=== PATIENT | female | born 1975 | race Caucasian/White ===

== ENCOUNTER → 2017-06-09 | Outpatient (CLI) | payer OTHER ==
[~2017-06-09] MED LIST: ACET-1256 PO; BSP/10 PO; BSP15 PO; CHLO1TAB19 PO; CLON0.5T3 PO; GABA800T PO; IBUP-1050 PO; QUET1TAB30 PO; TOPI50TA16 PO
[2017-06-09 18:46] LABS: URINE APPEARANCE CLEAR (CLEAR); URINE BILIRUBIN NEG (NEG); URINE COLOR YELLOW; URINE NITRITE NEG (NEG); URINE PH 7.5 (4.5-7.5); UROBILINOGEN NEG (NEG)
[2017-06-09 19:12] LABS: MANUAL MICROSCOPIC REQUIRED? YES; REVIEW REQ? NO
[2017-06-09 19:14] LABS: URINE BACTERIA 4+ (NEG); URINE RBC 0-4 /hpf (0-4)
== END | disposition home or self-care (01) ==
LOC: C.LABSPEC 17:19
PROVIDERS: ATTEND Nurse Practitioner Family
DX: R10.9 Unspecified abdominal pain (principal)

== ENCOUNTER 2017-06-24 16:09 | Inpatient (IN) | payer OTHER ==
[~2017-06-24] VITALS: Ht 170.2 cm; Wt 77.0 kg
[~2017-06-24 16:09] MED LIST changes: -BSP15 PO; -CHLO1TAB19 PO
[2017-06-24] MEDS ORDERED: SODIUM CHLORIDE 0.9% 1000ML 1,000 ML IV STA (16:22)
[2017-06-24 16:54] LABS: HEMATOCRIT 41.9 % (37-47); MEAN CELL VOLUME 90.5 fL (80-100); MEAN CORPUSCULAR HGB CONC 33.2 g/dl (32-36); MEAN PLATELET VOLUME 10.6 fL (7.4-10.4); PLATELET COUNT 217 K/uL (130-400); RED BLOOD COUNT 4.63 M/uL (4.2-5.4); WHITE BLOOD COUNT 7.94 K/uL (4.8-10.8)
[2017-06-24] MEDS ORDERED: BSP15 PO (17:06)
[2017-06-24] MEDS ORDERED: CHLO1TAB19 PO (17:06)
--- NOTE | 2017-06-24 17:08 | EMERGENCY ROOM VISIT NOTE ---
History Report prepared by Linda: Lianne Morrissey Under the Supervision of: Dr. Osmany Moss M.D. First contact with patient: 16:20 Chief Complaint: OVERDOSE (INTENTIONAL) Stated Complaint: POSSIBLE OVERDOSE ON MEDICATIONS History of Present Illness The patient is a 41 year old female who presents to the Emergency Room with complaints of an overdose around 1200 today. The patient took 15/0.5 mg Klonopin. She also took Thorazine, BuSpar, and Neurontin. She also took her other medications which she cannot recall. They were her own medications. She states that she was upset because she was going to half-way. She was not trying to harm herself. She was trying to sleep. She arrived at the detention around 1400 and told medical that she had overdosed. She was brought to the ED. She is groggy, sleepy, and nauseous. She denies any vomiting. She denies any prior overdose. She has a history of depression, anxiety, and bipolar disorder. She denies any other medical problems. Source of History: patient Onset: 1200 Position: other (global) Quality: other (overdose) Timing: other (episodic) Associated Symptoms: + nausea, No vomiting Note: Pt is groggy, sleepy. Review of Systems See HPI for pertinent positives & negatives. A total of 10 systems reviewed and were otherwise negative. Past Medical & Surgical Medical Problems: (1) Abdominal pain (2) Bipolar Disorder, Unspecified (3) Calculus Of Kidney (4) Depressive Disorder Nec (5) Pain, dental (6) Psychosis Nos (7) Tubal Ligation Status Family History Cancer Diabetes mellitus Gallbladder disease Heart disease Lung disease Seizures Social History Smoking Status: Current Every Day Smoker Alcohol Use: none Drug Use: heroin Marital Status: Housing Status: other (detention) Occupation Status: other (prisoner) Current/Historical Medications Scheduled Buspirone HCl (Buspirone HCl), 15 MG PO TID Chlorpromazine Hcl (Thorazine), 25 MG PO TID Clonazepam (Klonopin), 0.5 MG PO TID Gabapentin (Neurontin), 800 MG PO TID Quetiapine Fumarate (Seroquel), 300 MG PO HS Topiramate (Topamax), 50 MG PO BID Allergies Coded Allergies: Codeine (Verified Allergy, Unknown, PT IS NOT ALLERGIC TO CODEINE BUT TO COUGH SYRUP FORMULATION, 06/24/17) Physical Exam Vital Signs Date Time Temp Pulse Resp B/P (MAP) Pulse Ox O2 Delivery O2 Flow Rate FiO2 06/24/17 17:09 96 Room Air 06/24/17 16:45 99 06/24/17 16:13 36.5 100 18 105/75 98 Room Air Physical Exam GENERAL: Patient is in no acute distress. HEENT: No acute trauma, normocephalic atraumatic, pupils equal and reactive to light, mucous membranes moist, no nasal congestion, no scleral icterus. NECK: No stridor, no adenopathy, no meningismus, trachea is midline. LUNGS: Clear to auscultation bilaterally, no wheeze, no rhonchi, breath sounds equal. HEART: Without murmurs gallops or rubs, regular rate and rhythm. ABDOMEN: Soft, nontender, bowel sounds positive, no hernias, no peritonitis. EXTREMITIES: No cyanosis or edema, full range of motion of all the joints without pain or difficulty, no signs for acute trauma. NEUROLOGIC: Groggy and sleepy, no focal motor deficit, awake, oriented x3. SKIN: No rash, no jaundice, no diaphoresis. Medical Decision & Procedures Laboratory Results 06/24/17 16:35 06/24/17 16:35 Test 06/24/17 16:35 06/24/17 17:05 Red Blood Count 4.63 M/uL (4.2-5.4) Mean Corpuscular Volume 90.5 fL (80-100) Mean Corpuscular Hemoglobin 30.0 pg (25-34) Mean Corpuscular Hemoglobin Concent 33.2 g/dl (32-36) RDW Standard Deviation 43.8 fL (36.4-46.3) RDW Coefficient of Variation 13.3 % (11.5-14.5) Mean Platelet Volume 10.6 fL (7.4-10.4) Prothrombin Time 9.9 SECONDS (9.0-12.0) Prothromb Time International Ratio 0.9 (0.9-1.1) Activated Partial Thromboplast Time 27.5 SECONDS (21.0-31.0) Partial Thromboplastin Ratio 1.1 Anion Gap 5.0 mmol/L (3-11) Estimated GFR () 81.6 Estimated GFR (Non- 70.4 BUN/Creatinine Ratio 8.5 (10-20) Calcium Level 9.2 mg/dl (8.5-10.1) Magnesium Level 2.2 mg/dl (1.8-2.4) Total Bilirubin 0.3 mg/dl (0.2-1) Aspartate Amino Transf (AST/SGOT) 23 U/L (15-37) Alanine Aminotransferase (ALT/SGPT) 26 U/L (12-78) Alkaline Phosphatase 81 U/L (45-117) Total Protein 7.9 gm/dl (6.4-8.2) Albumin 3.7 gm/dl (3.4-5.0) Globulin 4.1 gm/dl (2.5-4.0) Albumin/Globulin Ratio 0.9 (0.9-2) Thyroid Stimulating Hormone (TSH) 0.893 uIu/ml (0.300-4.500) Human Chorionic Gonadotropin, Qual NEG (NEG) Salicylates Level 4.9 mg/dl (2.8-20) Acetaminophen Level < 2 ug/ml (10-30) Ethyl Alcohol mg/dL < 3.0 mg/dl (0-3) Urine Color YELLOW Urine Appearance CLEAR (CLEAR) Urine pH 6.0 (4.5-7.5) Urine Specific [place] 1.021 (1.000-1.030) Urine Protein NEG (NEG) Urine Glucose (UA) NEG (NEG) Urine Ketones NEG (NEG) Urine Occult Blood 2+ (NEG) Urine Nitrite NEG (NEG) Urine Bilirubin NEG (NEG) Urine Urobilinogen NEG (NEG) Urine Leukocyte Esterase TRACE (NEG) Urine WBC (Auto) 1-5 /hpf (0-5) Urine RBC (Auto) 5-10 /hpf (0-4) Urine Hyaline Casts (Auto) 1-5 /lpf (0-5) Urine Epithelial Cells (Auto) >30 /lpf (0-5) Urine Bacteria (Auto) NEG (NEG) Urine Opiates Screen NEG (NEG) Urine Methadone, Qualitative NEG (NEG) Urine Barbiturates NEG (NEG) Urine Phencyclidine (PCP) Level NEG (NEG) Ur Amphetamine/Methamphetamine NEG (NEG) MDMA (Ecstasy) Screen NEG (NEG) Urine Benzodiazepines Screen POS (NEG) Urine Cocaine Metabolite NEG (NEG) Urine Marijuana (THC) NEG (NEG) Laboratory results reviewed by me. Medications Administered Medications (Trade) Dose Ordered Sig/Rohini Route Start Time Stop Time Status Last Admin Dose Admin Sodium Chloride 1,000 ml @ 999 mls/hr Q1H1M STAT IV 06/24/17 16:22 06/24/17 17:22 DC 06/24/17 16:53 999 MLS/HR ECG Indication: toxicologic Rate (beats per minute): 99 Rhythm: normal sinus Findings: no acute ischemic change, no ectopy ED Course 162: The patient was evaluated in room C8. A complete history and physical exam was performed. 162: NSS 1000 ml @ 999 mls/hr IV. 1739: I reevaluated the patient. She is asking for something to eat. I discussed results and treatment plan with the patient and the guards. They verbalize agreement and understanding. The patient will be evaluated for further management. 1743: I discussed the patient's case with Dr. Oneill, [facility] hospitalist service. The patient will be evaluated for further management. Medical Decision Differential diagnoses considered include suicidal ideation, electrolyte imbalance, alcohol overdose, medication overdose, dehydration, UTI, . There is no leukocytosis or concerning anemia. No significant electrolyte abnormality, kidney failure or hepatitis. The patient appears to be in a euthyroid state. There is no coagulopathy. Urinalysis shows contamination, no evidence for infection. Alcohol, aspirin and Tylenol levels were basically undetectable. Urine tox shows benzos. EKG shows a sinus rhythm, no acute ischemia, no dysrhythmia. testing was negative. The patient received IV saline, she has been resting. She is quite somnolent from what she ingested, she denies that this was a suicide attempt. The patient is not safe to be discharged back to the detention. She will require monitoring. We need to allow the drugs to clear from her system and then she can be taken back to half-way. I spoke to case management, I did talk with the detention guards and the patient. The on-call hospitalist was consulted. Consults Time Called: 1740 Consulting Physician: Dr. Oneill, [facility] hospitalist service Returned Call: 1743 I discussed the patient's case with him. The patient will be evaluated for further management. Impression Primary Impression: Multiple drug overdose Additional Impression: Change in mental status Scribe Attestation The scribe's documentation has been prepared under my direction and personally reviewed by me in its entirety. I confirm that the note above accurately reflects all work, treatment, procedures, and medical decision making performed by me. Departure Information Dispostion Being Evaluated By Hospitalist Referrals [facility] (PCP) Patient Instructions My [facility] Health Problem Qualifiers
[2017-06-24 17:11] LABS: INR 0.9 (0.9-1.1); PARTIAL THROMBOPLASTIN RATIO 1.1; PROTHROMBIN TIME (PATIENT) 9.9 SECONDS (9.0-12.0)
[2017-06-24 17:19] LABS: ALT/SGPT 26 U/L (12-78); BLOOD UREA NITROGEN 9 mg/dl (7-18); BUN/CREATININE RATIO 8.5 (10-20); CALCIUM 9.2 mg/dl (8.5-10.1); CARBON DIOXIDE 26 mmol/L (21-32); CHLORIDE 109 mmol/L (98-107); GLUCOSE 97 mg/dl (70-99); MAGNESIUM 2.2 mg/dl (1.8-2.4); POTASSIUM 3.5 mmol/L (3.5-5.1); SODIUM 140 mmol/L (136-145)
[2017-06-24 17:27] LABS: URINE APPEARANCE CLEAR (CLEAR); URINE BILIRUBIN NEG (NEG); URINE COLOR YELLOW; URINE EPITHELIAL CELL AUTO >30 /lpf (0-5); URINE NITRITE NEG (NEG); URINE SPECIFIC GRAVITY 1.021 (1.000-1.030); UROBILINOGEN NEG (NEG); ZZUR CULT IF INDIC CLEAN CATCH NO
[2017-06-24 17:27] LABS: PREG INTERNAL NEGATIVE QC NEG CLEAR BACKGROUND; PREG INTERNAL POSITIVE QC POS CONTROL LINE
[2017-06-24 17:28] LABS: MANUAL MICROSCOPIC REQUIRED? NO; REVIEW REQ? NO
[2017-06-24 17:30] LABS: ALB/GLOB RATIO 0.9 (0.9-2); ALKALINE PHOSPHATASE 81 U/L (45-117); AST/SGOT 23 U/L (15-37); THYROID STIMULATING HORMONE 0.893 uIu/ml (0.300-4.500)
[2017-06-24 17:52] LABS: BENZODIAZEPINE, URINE POS (NEG); COCAINE,URINE NEG (NEG); PHENCYCLIDINE, URINE NEG (NEG)
[2017-06-24 17:58] LABS: ACETAMINOPHEN < 2 ug/ml (10-30)
--- NOTE | 2017-06-24 19:13 | History and Physical ---
History & Physical Date & Time of Service: Jun 24, 2017 at 18:51 Chief Complaint: Possible Overdose On Medications Primary Care Physician: Yocasta Garvey History of Present Illness Source: patient 41 y/o F Hx Bipolar disease with psychosis. The pt was sentenced to a 3 day stint at local skilled nursing. This caused her due distress and lead her to ingest excess amounts of several of her medications. She can confirm that she consumed 7.5 mg of Klonopin in addition to an undetermined quantity of Thorazine , Evan, Buspar. The pt is somnolent but can answer question appropriately at the time of admission. She insists she did not intend to harm herself and states that she overdosed with the intent of sleeping through her 3 day sentence. She denies any CP, SOB, N/V, DUMONT or fevers. Past Medical/Surgical History Medical Problems: (1) Abdominal pain Status: Resolved (2) Bipolar Disorder, Unspecified Status: Chronic (3) Calculus Of Kidney Status: Resolved (4) Depressive Disorder Nec Status: Chronic (5) Pain, dental Status: Resolved (6) Psychosis Nos Status: Chronic (7) Tubal Ligation Status Status: Resolved Family History Cancer Diabetes mellitus Gallbladder disease Heart disease Lung disease Seizures Father owing to CHF Social History Smokes one pack daily - states she was a heroin user until 2 years ago and not since - currently incarcerated for a short period Smoking Status: Current Every Day Smoker Drug Use: heroin Marital Status: Housing status: lives with significant other Occupational Status: other (prisoner) Immunizations History of Influenza Vaccine: Unknown History of Tetanus Vaccine?: Unknown History of Pneumococcal: No History of Hepatitis B Vaccine: Unknown Multi-Drug Resistant Organisms History of MDRO: No Allergies Coded Allergies: Codeine (Verified Allergy, Unknown, PT IS NOT ALLERGIC TO CODEINE BUT TO COUGH SYRUP FORMULATION, 06/24/17) Home Medications Scheduled Buspirone HCl (Buspirone HCl), 15 MG PO TID Chlorpromazine Hcl (Thorazine), 25 MG PO TID Clonazepam (Klonopin), 0.5 MG PO TID Gabapentin (Neurontin), 800 MG PO TID Quetiapine Fumarate (Seroquel), 300 MG PO HS Topiramate (Topamax), 50 MG PO BID Review of Systems Constitutional: No fever, No chills, No sweats Eyes: No worsening of vision ENT: No hearing loss, No unusual epistaxis, No nasal symptoms Respiratory: No cough, No sputum, No wheezing Cardiovascular: No chest pain, No orthopnea, No PND Abdomen: No pain, No nausea, No vomiting Musculoskeletal: No joint pain Genitourinary - Female: No dysuria Neurologic: + problem reported (Somnolence as above ), No memory loss, No paralysis, No weakness Psychiatric: + depression symptoms Endocrine: No fatigue Hematologic / Lymphatic: No abnormal bleeding/bruising Integumentary: No rash Allergic / Immunologic: No environmental allergies Physical Exam Vital Signs Date Time Temp Pulse Resp B/P (MAP) Pulse Ox O2 Delivery O2 Flow Rate FiO2 06/24/17 18:23 90 16 109/86 97 Room Air 06/24/17 17:09 96 Room Air 06/24/17 16:45 99 06/24/17 16:13 36.5 100 18 105/75 98 Room Air General Appearance: WD/WN, no apparent distress Head: normocephalic Eyes: normal inspection, PERRL, EOMI ENT: normal ENT inspection, pharynx normal Neck: supple, no JVD Respiratory/Chest: chest non-tender, lungs clear, normal breath sounds Cardiovascular: regular rate, rhythm, no edema, no gallop, no JVD, no murmur, normal peripheral pulses Abdomen/GI: normal bowel sounds, non tender, soft Back: normal inspection, no CVA tenderness Extremities/Musculoskelatal: normal inspection, no calf tenderness Neurologic/Psych: + pertinent finding (The pt is somnolent so that her exam is limited - she does not display any clear deficits and is oriented x 3 ) Skin: normal color, warm/dry, no rash Diagnostics Laboratory Results Results Past 24 Hours Test 06/24/17 16:35 06/24/17 17:05 Range/Units White Blood Count 7.94 4.8-10.8 K/uL Red Blood Count 4.63 4.2-5.4 M/uL Hemoglobin 13.9 12.0-16.0 g/dL Hematocrit 41.9 37-47 % Mean Corpuscular Volume 90.5 80-100 fL Mean Corpuscular Hemoglobin 30.0 25-34 pg Mean Corpuscular Hemoglobin Concent 33.2 32-36 g/dl RDW Standard Deviation 43.8 36.4-46.3 fL RDW Coefficient of Variation 13.3 11.5-14.5 % Platelet Count 217 130-400 K/uL Mean Platelet Volume 10.6 7.4-10.4 fL Prothrombin Time 9.9 9.0-12.0 SECONDS Prothromb Time International Ratio 0.9 0.9-1.1 Activated Partial Thromboplast Time 27.5 21.0-31.0 SECONDS Partial Thromboplastin Ratio 1.1 Sodium Level 140 136-145 mmol/L Potassium Level 3.5 3.5-5.1 mmol/L Chloride Level 109 98-107 mmol/L Carbon Dioxide Level 26 21-32 mmol/L Anion Gap 5.0 3-11 mmol/L Blood Urea Nitrogen 9 7-18 mg/dl Creatinine 1.00 0.60-1.20 mg/dl Estimated GFR () 81.6 Estimated GFR (Non- 70.4 BUN/Creatinine Ratio 8.5 10-20 Random Glucose 97 70-99 mg/dl Calcium Level 9.2 8.5-10.1 mg/dl Magnesium Level 2.2 1.8-2.4 mg/dl Total Bilirubin 0.3 0.2-1 mg/dl Aspartate Amino Transf (AST/SGOT) 23 15-37 U/L Alanine Aminotransferase (ALT/SGPT) 26 12-78 U/L Alkaline Phosphatase 81 45-117 U/L Total Protein 7.9 6.4-8.2 gm/dl Albumin 3.7 3.4-5.0 gm/dl Globulin 4.1 2.5-4.0 gm/dl Albumin/Globulin Ratio 0.9 0.9-2 Thyroid Stimulating Hormone (TSH) 0.893 0.300-4.500 uIu/ml Human Chorionic Gonadotropin, Qual NEG NEG Salicylates Level 4.9 2.8-20 mg/dl Acetaminophen Level < 2 10-30 ug/ml Ethyl Alcohol mg/dL < 3.0 0-3 mg/dl Urine Color YELLOW Urine Appearance CLEAR CLEAR Urine pH 6.0 4.5-7.5 Urine Specific [place] 1.021 1.000-1.030 Urine Protein NEG NEG Urine Glucose (UA) NEG NEG Urine Ketones NEG NEG Urine Occult Blood 2+ NEG Urine Nitrite NEG NEG Urine Bilirubin NEG NEG Urine Urobilinogen NEG NEG Urine Leukocyte Esterase TRACE NEG Urine WBC (Auto) 1-5 0-5 /hpf Urine RBC (Auto) 5-10 0-4 /hpf Urine Hyaline Casts (Auto) 1-5 0-5 /lpf Urine Epithelial Cells (Auto) >30 0-5 /lpf Urine Bacteria (Auto) NEG NEG Urine Opiates Screen NEG NEG Urine Methadone, Qualitative NEG NEG Urine Barbiturates NEG NEG Urine Phencyclidine (PCP) Level NEG NEG Ur Amphetamine/Methamphetamine NEG NEG MDMA (Ecstasy) Screen NEG NEG Urine Benzodiazepines Screen POS NEG Urine Cocaine Metabolite NEG NEG Urine Marijuana (THC) NEG NEG EKG Sinus tach - 100 BPM normal QT Impression Assessment and Plan 41 y/o F Hx Bipolar disease with psychosis. The pt was sentenced to a 3 day stint at te local skilled nursing. This caused her due distress and lead her to ingest excess amounts of several of her medications. She can confirm that she consumed 7.5 mg of Klonopin in addition to an undetermined quantity of Thorazine , Evan, Buspar. The pt is somnolent but can answer question appropriately at the time of admission. She insists she did not intend to harm herself and states that she overdosed with the intent of sleeping through her 3 day sentence. She denies any CP, SOB, N/V, DUMONT or fevers. 1) Overdose - monitor on telemetry, IVF - check EKG q4h for QT prolongation - mental helath consult requested to evaluate for ideation - at very least her poor judgement places her at risk for self harm. 2) Smoker - pt has more pressing issues at present than cessation. Full code - Heparin prophylaxis Total time for this admit including review of labs, meds, EKG, recors - discussion with pt and ER attending - 35 min Level of Care Telemetry Resuscitation Status FULL RESUSCITATION VTE Prophylaxis Given or contraindicated: Unfractionated heparin SQ
[2017-06-24] MEDS ORDERED: MAGNESIUM HYDROXIDE SUSP 30 ML UDC PO PRN (19:15)
[2017-06-24] MEDS ORDERED: POLYETHYLENE (MIRALAX) 17 GM PACK PO PRN (19:15)
[2017-06-24] MEDS ORDERED: ALUMINUM/MAGNESIUM/SIMETH (MAALOX MAX) 30 ML UDC PO PRN (19:15)
[2017-06-24] MEDS ORDERED: ONDANSETRON INJ 2 MG/ML 2 ML VIAL IV PRN (19:15)
[2017-06-24] MEDS ORDERED: ACETAMINOPHEN 325 MG TAB PO PRN (19:15)
[2017-06-24 21:10] VITALS: BP 124/88; PULSE 110; TEMP 36.4; O2SAT 98
[2017-06-24 21:14] VITALS: O2SAT 97; Ht 170.2 cm; Wt 77.0 kg
[2017-06-24] MEDS: D5NSS + 20MEQ KCL 1,000 ML IV SCH (21:49)
[2017-06-24] MEDS: HEPARIN SOD 5000 UNIT/0.5 ML CARP SQ SCH (21:50)
[2017-06-24 23:07] VITALS: BP 106/73; PULSE 95; TEMP 36.5; O2SAT 98
[2017-06-25 02:55] VITALS: BP 102/70; PULSE 86; TEMP 36.6; O2SAT 98
[2017-06-25] MEDS: D5NSS + 20MEQ KCL 1,000 ML IV SCH (04:10)
[2017-06-25 05:35] LABS: MEAN CELL VOLUME 90.5 fL (80-100); MEAN CORPUSCULAR HEMOGLOBIN 30.4 pg (25-34); MEAN CORPUSCULAR HGB CONC 33.6 g/dl (32-36); MEAN PLATELET VOLUME 10.7 fL (7.4-10.4); PLATELET COUNT 186 K/uL (130-400); RED BLOOD COUNT 3.98 M/uL (4.2-5.4); WHITE BLOOD COUNT 9.02 K/uL (4.8-10.8)
[2017-06-25] MEDS: HEPARIN SOD 5000 UNIT/0.5 ML CARP SQ SCH (05:37)
[2017-06-25 06:06] LABS: BUN/CREATININE RATIO 8.6 (10-20); CALCIUM 7.7 mg/dl (8.5-10.1); CREATININE 0.87 mg/dl (0.60-1.20); MAGNESIUM 1.9 mg/dl (1.8-2.4); POTASSIUM 3.5 mmol/L (3.5-5.1)
[2017-06-25 06:59] VITALS: BP 118/79; PULSE 95; TEMP 36.7; O2SAT 95
[2017-06-25] MEDS ORDERED: IBUPROFEN 600 MG TAB PO STA (10:07)
--- NOTE | 2017-06-25 10:17 | Discharge Instructions ---
Discharge Instructions Date of Service Jun 25, 2017. Admission Reason for Admission: Multiple Drug Overdose Discharge Discharge Diagnosis / Problem: Multiple Drug Overdose Discharge Goals Goal(s): Decrease discomfort, Improve function, Increase independence Activity Recommendations Activity Level: Up Ad Sue . Additional Information Patient informed of condition: Yes Advance Directives: No DNR: No Level of Care: Other ([facility]) Communicable Disease: No Prognosis: Stable Instructions / Follow-Up Instructions / Follow-Up Bipolar Disorder with Psychosis with Intentional Multiple Drug Overdose without Suicidal Intention: - It is important to take medications as prescribed as these medications can effect the electrical activity of your heart which allows your heart to beat the right way. -- We have monitored your heart rhythm and everything looks good - Would recommend that you follow-up with your primary psychiatrist when possible to discuss your medications and continued evaluation for the most appropriate medications to help your Bipolar Disorder - May benefit from limited amounts of prescriptions with more frequent checks to prevent overuse. Again it is important to know that taking medications other than prescribed can ultimately lead to . - Recommendations for weaning of the Clonazepam slowly but would defer this to your psychiatrist IF YOU DO DEVELOP SUICIDAL THOUGHTS OR FEELINGS OF HARMING YOURSELF, PLEASE CALL CRISIS OR 911. Current Hospital Diet Patient's current hospital diet: Regular Diet Discharge Diet Recommended Diet: Regular Diet Pending Studies Studies pending at discharge: no Medical Emergencies . Who to Call and When: Medical Emergencies: If at any time you feel your situation is an emergency, please call 911 immediately. . Non-Emergent Contact Non-Emergency issues call your: Primary Care Provider Call Non-Emergent contact if: you have a fever, your pain is concerning you, you have any medication questions . . "Provider Documentation" section prepared by Janeth Foss. . Core Measure Problem Core Measures: None [place] Drug Monitoring Program Search Results: patient reviewed within database, no issues identified
[2017-06-25 11:33] VITALS: BP 115/83; PULSE 102; TEMP 37.1; O2SAT 97
[2017-06-25 12:00] VITALS: BP 115/83; PULSE 102; TEMP 37.1; O2SAT 97
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
--- NOTE | 2017-06-25 12:12 | Discharge Summary ---
Discharge Summary Date of Service Jun 25, 2017. Discharge Summary Admission Date: Jun 24, 2017 at 19:23 Discharge Date: Jun 25, 2017 Discharge Disposition: Home ([facility]) Principal Diagnosis: Intentional Multi-Drug Overdose without Suicidal Ideation Problems/Secondary Diagnoses: 1. Bipolar Disorder with Psychosis Immunizations: Have You Had Influenza Vaccine: Unknown History of Tetanus Vaccine?: Unknown History of Pneumococcal: No History of Hepatitis B Vaccine: Unknown Consultations: 1. Psychiatry Medication Reconciliation Continued Medications: Buspirone HCl (Buspirone HCl) 15 Mg Tab 15 MG PO TID, #90 Chlorpromazine Hcl (Thorazine) 25 Mg Tab 25 MG PO TID, #90 Clonazepam (Klonopin) 0.5 Mg Tab 0.5 MG PO TID, TAB Gabapentin (Neurontin) 800 Mg Tab 800 MG PO TID, TAB Quetiapine Fumarate (Seroquel) 25 Mg Tab 300 MG PO HS, TAB Topiramate (Topamax) 50 Mg Tab 50 MG PO BID, TAB Discharge Exam Review of Systems: Constitutional: + problem reported (headache), No fever, No chills Eyes: No worsening of vision, No eye pain, No diplopia ENT: No nasal symptoms, No sore throat, No trouble swallowing Respiratory: No shortness of breath Cardiovascular: No chest pain, No palpitations Abdomen: No pain, No nausea, No vomiting, No diarrhea, No constipation Musculoskeletal: No swelling, No calf pain Genitourinary - Female: No dysuria Psychiatric: + depression symptoms, + anxiety Hematologic / Lymphatic: No abnormal bleeding/bruising Physical Exam: General Appearance: WD/WN, no apparent distress, + pertinent finding (flat affect; intermittent eye contact; mildly agitated) Eyes: sclerae normal ENT: hearing grossly normal Neck: supple, no JVD, trachea midline Respiratory/Chest: lungs clear, normal breath sounds, no respiratory distress, no accessory muscle use Cardiovascular: regular rate, rhythm, no gallop, no murmur Abdomen / GI: normal bowel sounds, non tender, soft Extremities: no pedal edema Neurologic/Psychiatric: alert, oriented x 3 Skin: normal color, warm/dry Hospital Course ADMISSION: 41 y/o F Hx Bipolar disease with psychosis. The pt was sentenced to a 3 day stint at the local [facility]. This caused her due distress and lead her to ingest excess amounts of several of her medications. She can confirm that she consumed 7.5 mg of Klonopin in addition to an undetermined quantity of Thorazine, Evan, Buspar. The pt is somnolent but can answer question appropriately at the time of admission. She insists she did not intend to harm herself and states that she overdosed with the intent of sleeping through her 3 day sentence. She denies any CP, SOB, N/V, DUMONT or fevers. HOSPITAL COURSE: Ms. Glover was admitted for an intentional multi-drug overdose prior to arriving to [facility]. She has expressed multiple times that this was not in attempts of suicide. She does admit to impulsive behavior but does not feel manic. She follows with Dr. Rodriguez for her psychiatric care. She was monitoring overnight with heart rhythms in sinus and minimal sinus tach. Routine EKGs performed without abnormalities or QT prolongation. Tox screen was only positive for benzodiazepines. She reported H/O heroin use but reports abstinence from this. Psychiatry evaluated her while in-hospital with no medications adjustments at this time. Patient denies suicidal thoughts or plans of self-harm. She is optimal for D/C to [facility]. Total Time Spent: Greater than 30 minutes This includes examination of the patient, discharge planning, medication reconciliation, and communication with other providers. Discharge Instructions Please refer to the electronic Patient Visit Report (Discharge Instructions) for additional information. Additional Copies To [facility]
[2017-06-27 00:05] LABS: HYDROXYETHYLFLURAZEPAM CONF NEGATIVE NG/ML (CUTOFF=50); HYDROXYMIDAZOLAM NEGATIVE NG/ML (CUTOFF=50); HYDROXYTRIAZOLAM CONF NEGATIVE NG/ML (CUTOFF=50); TEMAZEPAM CONF NEGATIVE NG/ML (CUTOFF=50)
== END 2017-06-25 12:39 | DRG 918 ==
LOC: C.EDB 16:12 → C.2T 19:23 → CANRESERV 19:48 → ENRESERV 19:48
PROVIDERS: ADMIT Internal Medicine; ATTEND Internal Medicine
DX: T42.4X2A Poisoning by benzodiazepines, intentional self-harm, initial encounter (principal); F31.89 Other bipolar disorder; T43.3X2A Poisoning by phenothiazine antipsychotics and neuroleptics, intentional self-harm, initial encounter; T43.592A Poisoning by other antipsychotics and neuroleptics, intentional self-harm, initial encounter; F41.9 Anxiety disorder, unspecified; F17.200 Nicotine dependence, unspecified, uncomplicated; Z51.81 Encounter for therapeutic drug level monitoring; Z79.899 Other long term (current) drug therapy; Z62.810 Personal history of physical and sexual abuse in childhood; Z83.3 Family history of diabetes mellitus; Z82.49 Family history of ischemic heart disease and other diseases of the circulatory system

== ENCOUNTER → 2017-11-18 | Outpatient (CLI) | payer OTHER ==
[~2017-11-18] MED LIST changes: -ACET-1256 PO; -BSP/10 PO; +BSP15 PO; +CHLO1TAB19 PO; -IBUP-1050 PO
--- NOTE | 2017-11-18 15:22 | MAMMOGRAPHY REPORT ---
BILATERAL DIGITAL SCREENING MAMMOGRAM TOMOSYNTHESIS WITH CAD: 11/18/2017 CLINICAL HISTORY: Routine screening. Patient has no complaints. TECHNIQUE: Breast tomosynthesis in addition to standard 2D mammography was performed. Current study was also evaluated with a Computer Aided Detection (CAD) system. COMPARISON: Comparison is made to exams dated: 01/03/2016 ultrasound and 01/03/2016 mammogram - [facility]. BREAST COMPOSITION: The tissue of both breasts is heterogeneously dense, which may obscure small mas ses. FINDINGS: No suspicious masses, calcifications, or areas of architectural distortion are noted in ei ther breast. There has been no significant interval change compared to prior exams. IMPRESSION: ACR BI-RADS CATEGORY 1: NEGATIVE There is no mammographic evidence of malignancy. A 1 year screening mammogram is recommended. The pa tient will receive written notification of the results. Approximately 10% of breast cancers are not detected with mammography. A negative mammographic report should not delay biopsy if a clinically suggestive mass is present. Chiqui Hernandez M.D. ah/:11/18/2017 10:37:50 Potato Loader: Araceli BLANKENSHIP(R)(Therese), [facility] letter sent: Normal 1/2 BI-RADS Code: ACR BI-RADS Category 1: Negative
== END | disposition home or self-care (01) ==
LOC: C.MAMM 09:58 → EDSTATUS 10:15
PROVIDERS: ATTEND Obstetrics & Gynecology Gynecology
DX: Z12.31 Encounter for screening mammogram for malignant neoplasm of breast (principal)

== ENCOUNTER → 2017-12-25 | Outpatient (CLI) | payer OTHER ==
[2017-12-25 15:43] LABS: BASO % 0.4 %; BASO ABS # 0.04 K/uL (0-0.2); EOS % 2.3 %; EOS ABS # 0.25 K/uL (0-0.5); HEMOGLOBIN 14.7 g/dL (12.0-16.0); IG# 0.02 K/uL (0.00-0.02); LYMPH % 31.5 %; LYMPH ABS # 3.37 K/uL (1.2-3.4); MEAN CELL VOLUME 90.9 fL (80-100); MEAN CORPUSCULAR HEMOGLOBIN 31.8 pg (25-34); MEAN PLATELET VOLUME 11.9 fL (7.4-10.4); MONO % 9.4 %; NEUT % 56.2 %; NEUT ABS # 6.01 K/uL (1.4-6.5); PLATELET COUNT 182 K/uL (130-400); RED CELL DISTRIBUTION WIDTH CV 13.6 % (11.5-14.5); RED CELL DISTRIBUTION WIDTH SD 44.5 fL (36.4-46.3); WHITE BLOOD COUNT 10.69 K/uL (4.8-10.8)
[2017-12-25 16:05] LABS: ALBUMIN 3.7 gm/dl (3.4-5.0); ALT/SGPT 88 U/L (12-78); BLOOD UREA NITROGEN 11 mg/dl (7-18); CALCIUM 9.4 mg/dl (8.5-10.1); CARBON DIOXIDE 27 mmol/L (21-32); CREATININE 0.94 mg/dl (0.60-1.20); GLUCOSE 80 mg/dl (70-99); POTASSIUM 3.9 mmol/L (3.5-5.1); SODIUM 140 mmol/L (136-145)
[2017-12-25 16:15] LABS: ALKALINE PHOSPHATASE 92 U/L (45-117); AST/SGOT 57 U/L (15-37); TOTAL PROTEIN 7.9 gm/dl (6.4-8.2)
[2017-12-25 16:57] LABS: T3 FREE 2.7 pg/ml (2.30-4.20)
== END | disposition home or self-care (01) ==
LOC: C.LAB1850 14:06
PROVIDERS: ATTEND Nurse Practitioner Family
DX: R53.83 Other fatigue (principal); E07.9 Disorder of thyroid, unspecified

== ENCOUNTER → 2018-01-01 | Outpatient (CLI) | payer OTHER ==
[~2018-01-01] MED LIST changes: +BUSP5TAB59 PO; +GABA-1218 PO; +HYDR1CAP85 PO; +MIRT45TA PO; +PANT40TA PO; +QUET1TAB13 PO; +SUMA100T16 PO
--- NOTE | 2018-01-01 08:48 | DIAGNOSTIC IMAGING REPORT ---
ULTRASOUND RIGHT UPPER QUADRANT ABDOMEN CLINICAL HISTORY: Elevated hepatic transaminases. COMPARISON STUDY: Abdominal CT dated 01/28/2014. TECHNIQUE: Real-time, grayscale, and color flow sonography of the right upper quadrant of the abdomen was performed. Images are reviewed in the transverse and longitudinal planes. FINDINGS: Liver: The liver is normal in size and demonstrates heterogeneously increased echotexture suggesting steatosis. There is no intrahepatic biliary ductal dilatation. The main portal vein is patent. Gallbladder: The gallbladder is surgically absent. The common bile duct measures up to 0.5 cm in diameter. Pancreas: Visualized portions of the pancreatic head and body are normal in appearance. The splenic vein is patent. Right kidney: Survey images of the right kidney demonstrate normal size and echotexture. There is no hydronephrosis. Ascites: None. IMPRESSION: 1. Findings suggest mild hepatic steatosis. 2. Status post cholecystectomy. Electronically signed by: Osmany Bellamy M.D. 01/01/2018 8:46 AM Dictated Date/Time: 01/01/2018 8:39 AM
[2018-01-01 10:49] LABS: HEP C IGG 13 YRS+OLDER_RFLX PRELIM POS (NEG)
[2018-01-02 06:10] LABS: HEPATITIS A IGM TC 51813E NON-REACTIVE (NON-REACTIVE); HEPATITIS B CORE IGM TC51854R NON-REACTIVE (NON-REACTIVE)
[2018-01-06 08:38] LABS: HEPATITIS C RNA TMA QUAL Detected
== END | disposition home or self-care (01) ==
LOC: C.ULTR 08:03
PROVIDERS: ATTEND Nurse Practitioner Family
DX: R74.8 Abnormal levels of other serum enzymes (principal)

== ENCOUNTER 2018-01-12 21:13 | Emergency (ER) | payer OTHER ==
[~2018-01-12] VITALS: Ht 170.2 cm; Wt 85.6 kg
[~2018-01-12 21:13] MED LIST changes: -BUSP5TAB59 PO; -GABA-1218 PO; -HYDR1CAP85 PO; -MIRT45TA PO; -PANT40TA PO; -QUET1TAB13 PO; -SUMA100T16 PO
[2018-01-12 21:15] VITALS: TEMP 36.7; Ht 170.2 cm; Wt 85.6 kg
[2018-01-12] MEDS ORDERED: ALUMINUM/MAGNESIUM SUSP 30 ML UDC PO STA (21:30)
[2018-01-12] MEDS ORDERED: METOCLOPRAMIDE HCL INJ 5 MG/ML 2 ML VIAL IV STA (21:30)
[2018-01-12] MEDS ORDERED: SODIUM CHLORIDE 0.9% 1000ML 1,000 ML IV STA (21:30)
[2018-01-12] MEDS ORDERED: LIDOCAINE HCL 2% VISC SOLN 20 ML UDC PO STA (21:30)
[2018-01-12 21:51] LABS: BASO % 0.5 %; BASO ABS # 0.04 K/uL (0-0.2); EOS % 4.3 %; EOS ABS # 0.32 K/uL (0-0.5); HEMATOCRIT 44.1 % (37-47); HEMOGLOBIN 15.3 g/dL (12.0-16.0); IG# 0.01 K/uL (0.00-0.02); LYMPH % 32.2 %; LYMPH ABS # 2.39 K/uL (1.2-3.4); MEAN CELL VOLUME 92.1 fL (80-100); MEAN CORPUSCULAR HEMOGLOBIN 31.9 pg (25-34); MEAN CORPUSCULAR HGB CONC 34.7 g/dl (32-36); MEAN PLATELET VOLUME 11.1 fL (7.4-10.4); MONO % 9.4 %; NEUT % 53.5 %; NEUT ABS # 3.97 K/uL (1.4-6.5); PLATELET COUNT 205 K/uL (130-400); RED CELL DISTRIBUTION WIDTH CV 13.4 % (11.5-14.5); RED CELL DISTRIBUTION WIDTH SD 45.2 fL (36.4-46.3); WHITE BLOOD COUNT 7.43 K/uL (4.8-10.8)
--- NOTE | 2018-01-12 21:53 | DIAGNOSTIC IMAGING REPORT ---
CHEST ONE VIEW PORTABLE CLINICAL HISTORY: CHEST PAIN COMPARISON STUDY: 03/05/2015 FINDINGS: The bones soft tissues and hemidiaphragms are normal. The cardiomediastinal silhouette is normal. The lungs are clear. The pulmonary vasculature is normal. IMPRESSION: Negative chest. The above report was generated using voice recognition software. It may contain grammatical, syntax or spelling errors. Electronically signed by: Torrey Cedillo M.D. 01/12/2018 9:51 PM Dictated Date/Time: 01/12/2018 9:51 PM
[2018-01-12 22:03] VITALS: O2SAT 97
[2018-01-12 22:08] LABS: ALBUMIN 3.8 gm/dl (3.4-5.0); ALT/SGPT 104 U/L (12-78); BLOOD UREA NITROGEN 8 mg/dl (7-18); CALCIUM 9.2 mg/dl (8.5-10.1); CARBON DIOXIDE 28 mmol/L (21-32); CREATININE 0.94 mg/dl (0.60-1.20); GLUCOSE 93 mg/dl (70-99); LIPASE 121 U/L (73-393); POTASSIUM 3.7 mmol/L (3.5-5.1); SODIUM 139 mmol/L (136-145)
[2018-01-12 22:13] LABS: ALKALINE PHOSPHATASE 85 U/L (45-117); AST/SGOT 83 U/L (15-37)
[2018-01-12] MEDS ORDERED: HYDR1CAP85 PO (22:31)
[2018-01-12] MEDS ORDERED: BUSP5TAB59 PO (22:31)
[2018-01-12] MEDS ORDERED: MIRT45TA PO (22:31)
[2018-01-12] MEDS ORDERED: GABA-1218 PO (22:36)
[2018-01-12] MEDS ORDERED: QUET1TAB13 PO (22:36)
[2018-01-12] MEDS ORDERED: SUMA100T16 PO (22:37)
[2018-01-12] MEDS ORDERED: SUCRALFATE 1 GM/10 ML UDC PO STA (22:58)
[2018-01-12] MEDS ORDERED: PANTOprazole SOD 40 MG TAB PO STA (23:56)
[2018-01-12] MEDS ORDERED: PANT40TA PO (23:57)
[2018-01-13 00:06] VITALS: BP 115/88; PULSE 98; O2SAT 97
--- NOTE | 2018-01-13 04:43 | EMERGENCY ROOM VISIT NOTE ---
History First contact with patient: 21:23 Chief Complaint: ABDOMINAL PAIN Stated Complaint: PAIN UPPER ABDOMEN Nursing Triage Summary: Pt states, "I had an sonogram done 2 weeks ago and they said I have a fatty liver." Upper abd pain started tonight at 2014. Took Zofran tonight with relief. History of Present Illness The patient is a 42 year old female who presents to the Emergency Room with complaints of epigastric pain for the past several hours described as discomfort , ranging in severity 6 out of 10. Nothing makes it better or worse. Patient complains of nausea. She has had a cholecystectomy in the past. 2 weeks ago she had an ultrasound but no acute findings per patient and per chart review. Patient denies chest pain, dyspnea, fever, chills, cough, congestion, vomiting, diarrhea, back pain, urinary symptoms. Review of Systems An 10 system review of systems was completed with positives and pertinent negatives listed in the HPI. Past Medical/Surgical History Medical Problems: (1) Abdominal pain (2) Bipolar Disorder, Unspecified (3) Calculus Of Kidney (4) Depressive Disorder Nec (5) History of bipolar disorder (6) Pain, dental (7) Psychosis Nos (8) Tubal Ligation Status Family History Cancer Diabetes mellitus Gallbladder disease Heart disease Lung disease Seizures Social History Smoking Status: Current Every Day Smoker Alcohol Use: none Drug Use: heroin Marital Status: Housing Status: other Occupation Status: other Current/Historical Medications Scheduled Buspirone Hcl (Buspirone Hcl), 5 MG PO TID Gabapentin (Neurontin), 300 MG PO BID Mirtazapine (Remeron), 45 MG PO HS Pantoprazole (Protonix), 40 MG PO DAILY Quetiapine Fumarate (Seroquel), 400 MG PO HS Scheduled PRN Hydroxyzine Pamoate (Vistaril), 25 MG PO DAILY PRN for Anxiety Sumatriptan Succinate (Imitrex), 100 MG PO UD PRN for Migraine Physical Exam Vital Signs Date Time Temp Pulse Resp B/P (MAP) Pulse Ox O2 Delivery O2 Flow Rate FiO2 01/13/18 00:06 98 21 115/88 97 01/12/18 23:02 127/94 01/12/18 22:18 92 13 96 01/12/18 22:13 94 13 97 01/12/18 22:03 99 01/12/18 22:03 97 Room Air 01/12/18 22:01 120/85 01/12/18 21:15 36.7 106 18 118/79 97 Room Air Physical Exam VITALS: Vitals are noted on the nurse's note and reviewed by myself. Vital signs stable. GENERAL: Pleasant female, in no acute distress, nondiaphoretic, well-developed well-nourished. SKIN: The skin was without rashes, erythema, edema, or bruising. There is no tenting of the skin. Capillary reflex less than 2 seconds. HEAD: Normocephalic atraumatic. EARS: External auditory canals clear, tympanic membranes pearly garrett without erythema or effusion bilaterally. EYES: Pupils equal round and reactive to light and accommodation. Conjunctivae without injection, sclerae without icterus. Extraocular movements intact. NOSE: Patent, turbinates without inflammation or discharge. MOUTH: Mucous membranes moist. Pharynx without erythema or exudate. Uvula midline. Airway patent. Tongue does not deviate. NECK: Supple without nuchal rigidity. No lymphadenopathy. No thyromegaly. Cervical spine is nontender. No JVD. HEART: Regular rate and rhythm without murmurs gallops or rubs. LUNGS: Clear to auscultation bilaterally without wheezes, rales or rhonchi. No retractions or accessory muscle use. ABDOMEN: Positive bowel sounds x 4. Normal tympanic percussion. Soft, nontender, without masses or organomegaly. Cobb sign negative. No guarding or rebound tenderness. No CVA tenderness MUSCULOSKELETAL: No muscle atrophy, erythema, or edema noted. NEURO: Patient was alert and oriented to person place and time. Normal sensation to light and sharp touch. No focal neurological deficits. Medical Decision & Procedures Laboratory Results 01/12/18 21:35 Red Blood Count 4.79, Mean Corpuscular Volume 92.1, Mean Corpuscular Hemoglobin 31.9, Mean Corpuscular Hemoglobin Concent 34.7, Mean Platelet Volume 11.1, Neutrophils (%) (Auto) 53.5, Lymphocytes (%) (Auto) 32.2, Monocytes (%) (Auto) 9.4, Eosinophils (%) (Auto) 4.3, Basophils (%) (Auto) 0.5, Neutrophils # (Auto) 3.97, Lymphocytes # (Auto) 2.39, Monocytes # (Auto) 0.70, Eosinophils # (Auto) 0.32, Basophils # (Auto) 0.04 01/12/18 21:35 Test 01/12/18 21:35 01/12/18 23:40 White Blood Count 7.43 K/uL (4.8-10.8) Red Blood Count 4.79 M/uL (4.2-5.4) Hemoglobin 15.3 g/dL (12.0-16.0) Hematocrit 44.1 % (37-47) Mean Corpuscular Volume 92.1 fL (80-100) Mean Corpuscular Hemoglobin 31.9 pg (25-34) Mean Corpuscular Hemoglobin Concent 34.7 g/dl (32-36) Platelet Count 205 K/uL (130-400) Mean Platelet Volume 11.1 fL (7.4-10.4) Neutrophils (%) (Auto) 53.5 % Lymphocytes (%) (Auto) 32.2 % Monocytes (%) (Auto) 9.4 % Eosinophils (%) (Auto) 4.3 % Basophils (%) (Auto) 0.5 % Neutrophils # (Auto) 3.97 K/uL (1.4-6.5) Lymphocytes # (Auto) 2.39 K/uL (1.2-3.4) Monocytes # (Auto) 0.70 K/uL (0.11-0.59) Eosinophils # (Auto) 0.32 K/uL (0-0.5) Basophils # (Auto) 0.04 K/uL (0-0.2) RDW Standard Deviation 45.2 fL (36.4-46.3) RDW Coefficient of Variation 13.4 % (11.5-14.5) Immature Granulocyte % (Auto) 0.1 % Immature Granulocyte # (Auto) 0.01 K/uL (0.00-0.02) Anion Gap 5.0 mmol/L (3-11) Est Creatinine Clear Calc Drug Dose 88.5 ml/min Estimated GFR () 87.3 Estimated GFR (Non- 75.4 BUN/Creatinine Ratio 8.8 (10-20) Calcium Level 9.2 mg/dl (8.5-10.1) Total Bilirubin 0.5 mg/dl (0.2-1) Direct Bilirubin 0.1 mg/dl (0-0.2) Aspartate Amino Transf (AST/SGOT) 83 U/L (15-37) Alanine Aminotransferase (ALT/SGPT) 104 U/L (12-78) Alkaline Phosphatase 85 U/L (45-117) Troponin I < 0.015 ng/ml (0-0.045) Total Protein 8.0 gm/dl (6.4-8.2) Albumin 3.8 gm/dl (3.4-5.0) Lipase 121 U/L (73-393) Human Chorionic Gonadotropin, Qual NEG (NEG) Bedside Troponin I < 0.030 ng/ml (0-0.045) Medications Administered Medications (Trade) Dose Ordered Sig/Rohini Route Start Time Stop Time Status Last Admin Dose Admin Lidocaine HCl (Viscous Lidocaine 2% Soln) 10 ml NOW STAT PO 01/12/18 21:30 01/12/18 21:33 DC 01/12/18 21:42 10 ML Al Hydroxide/Mg Hydroxide (Maalox Susp) 30 ml NOW STAT PO 01/12/18 21:30 01/12/18 21:33 DC 01/12/18 21:42 30 ML Sodium Chloride 1,000 ml @ 999 mls/hr Q1H1M STAT IV 01/12/18 21:30 01/12/18 22:30 DC 01/12/18 21:42 999 MLS/HR Metoclopramide HCl (Reglan Inj) 10 mg NOW STAT IV 01/12/18 21:30 01/12/18 21:33 DC 01/12/18 21:42 10 MG Sucralfate (Carafate Susp) 1 gm NOW STAT PO 01/12/18 22:58 01/12/18 22:59 DC 01/12/18 23:07 1 GM Pantoprazole Sodium (Protonix Tab) 40 mg NOW STAT PO 01/12/18 23:56 01/12/18 23:57 DC 01/13/18 00:03 40 MG ED Course Prior records/ancillary studies reviewed. Triage Nursing notes reviewed. Additional history obtained from family. The patient's history was concerning for epigastric pain. Differential diagnosis: Etiologies such as gastritis, pancreatitis, cardiac ischemia, aortic dissection , pulmonary embolism, pneumonia, pneumothorax, musculoskeletal, infections, pericarditis, myocarditis, esophageal rupture, gastrointestinal, as well as others were entertained. Physical examination: As above. ER treatment provided: GI cocktail On reassessment the patient felt better. Diagnostic interpretation by me: The electrocardiogram was negative for pathologic change. Normal sinus, normal intervals, no acute ST-T wave changes. Impression normal sinus rhythm interpreted by myself The labs revealed 2 negative troponins greater than 2 hours apart. Stable H&H. Imaging studies: [~ rep ct add3]] CHEST ONE VIEW PORTABLE CLINICAL HISTORY: CHEST PAIN COMPARISON STUDY: 03/05/2015 FINDINGS: The bones soft tissues and hemidiaphragms are normal. The cardiomediastinal silhouette is normal. The lungs are clear. The pulmonary vasculature is normal. IMPRESSION: Negative chest. ULTRASOUND RIGHT UPPER QUADRANT ABDOMEN CLINICAL HISTORY: Elevated hepatic transaminases. COMPARISON STUDY: Abdominal CT dated 01/28/2014. TECHNIQUE: Real-time, grayscale, and color flow sonography of the right upper quadrant of the abdomen was performed. Images are reviewed in the transverse and longitudinal planes. FINDINGS: Liver: The liver is normal in size and demonstrates heterogeneously increased echotexture suggesting steatosis. There is no intrahepatic biliary ductal dilatation. The main portal vein is patent. Gallbladder: The gallbladder is surgically absent. The common bile duct measures up to 0.5 cm in diameter. Pancreas: Visualized portions of the pancreatic head and body are normal in appearance. The splenic vein is patent. Right kidney: Survey images of the right kidney demonstrate normal size and echotexture. There is no hydronephrosis. Ascites: None. IMPRESSION: 1. Findings suggest mild hepatic steatosis. 2. Status post cholecystectomy. Electronically signed by: Osmany Bellamy M.D. HEART SCORE: Hx: high/mod/low suspicion: 0 ECG: ST depression/nonspecific changes/normal: 0 Age: Greater than 65/45-64/less than 45: 0 Risk factors: (Hypertension, hyperlipidemia, diabetes, coronary disease, tobacco use, cocaine use): 0 Troponin: Greater than 2 times normal limits/1-2 times normal limits/normal: 0 Total: 0 Exam and history seem consistent with epigastric discomfort mostly related to gastritis/reflux. Patient has a history of alcoholism. She is currently on house arrest. Lipase was normal. Ultrasound from the other day was negative. She has no gallbladder. Patient was advised to take medications as directed, rest, avoid acidic foods and follow-up family care in a few days or here in the ER sooner for abdominal pain, chest pain, difficulty breathing, worsening signs or symptoms or as needed. Patient had 2 negative troponins. Normal EKG. Heart score is low. By the evaluation outlined above emergent etiologies such as cardiac ischemia, aortic dissection, pulmonary embolism, pneumonia, pneumothorax, infections, pericarditis, myocarditis, gastrointestinal, as well as others were deemed relatively unlikely. The pt informed about the findings as listed above. All questions were answered and pleased with the treatment. Return instructions were outlined and the patient was discharged in stable condition. Outpatient prescription management: Protonix Case reviewed with my attending Referral: The patient was referred back to primary care physician for follow-up in 2 to 3 days for a recheck of the current condition. The chart was completed utilizing [employer] Speech voice recognition software. Grammatical errors, random word insertions, pronoun errors, and incomplete sentences are an occassional consequence of this system due to software limitations, ambient noise, and hardware issues. Any formal questions or concerns about the content, text, or information contained within the body of this dictation should be directly addressed to the physician assistant corporate secretary for clarification. Medical Decision As above Medication Reconcilliation Current Medication List: was personally reviewed by me Blood Pressure Screening Patient's blood pressure: Normal blood pressure Impression Primary Impression: Epigastric abdominal pain Departure Information Dispostion Home / Self-Care Condition GOOD Prescriptions Pantoprazole (Protonix) 40 Mg Tab 40 MG PO DAILY for 14 Days, #14 TAB Prov: Tania Padron .NIKKIE 01/12/18 Forms Call Back Authorization, HOME CARE DOCUMENTATION FORM, IMPORTANT VISIT INFORMATION Patient Instructions GERD, My [facility] Additional Instructions Protonix 40 m tablet daily for next 2 weeks. Take this on an empty stomach. Try Maalox or Zantac for breakthrough symptoms for reflux. Avoid large meals. Avoid acidic foods. Rest and drink plenty of fluids as tolerated. Continue current medications. Avoid strenuous activities and anything that worsens your pain. Resume normal activities once your symptoms resolve. Return to the ER immediately for worsening or persistent chest pain, abdominal pain, black or blood in your stools, vomiting, fevers, chest pains, difficulty breathing, worsening of your condition, or as needed. Follow up with your primary physician in 2-3 days for a recheck of your current condition.
== END 2018-01-13 00:06 | disposition home or self-care (01) ==
LOC: C.EDB 21:15 → C.EDC 01-13 00:06
DX: R10.13 Epigastric pain (principal); K76.0 Fatty (change of) liver, not elsewhere classified; F31.9 Bipolar disorder, unspecified; F32.9 Major depressive disorder, single episode, unspecified; F17.200 Nicotine dependence, unspecified, uncomplicated; Z90.49 Acquired absence of other specified parts of digestive tract; Z98.51 Tubal ligation status; Z87.442 Personal history of urinary calculi; Z83.3 Family history of diabetes mellitus; Z82.0 Family history of epilepsy and other diseases of the nervous system

== ENCOUNTER → 2018-03-07 | Outpatient (CLI) | payer OTHER ==
[~2018-03-07] MED LIST changes: -BSP15 PO; +BUSP5TAB59 PO; -CHLO1TAB19 PO; -CLON0.5T3 PO; +GABA-1218 PO; -GABA800T PO; +HYDR1CAP85 PO; +MIRT45TA PO; +QUET1TAB13 PO; -QUET1TAB30 PO; +SUMA100T16 PO; -TOPI50TA16 PO
--- NOTE | 2018-03-07 09:44 | DIAGNOSTIC IMAGING REPORT ---
L PELVIS/UNILATERAL HIP 2-3VIEWS CLINICAL HISTORY: AP pelvis and left hip 3 views COMPARISON STUDY: 07/15/2016 FINDINGS: There is an old left ischio pubic ring fracture. This is been internally fixated with a metallic plate and multiple screws. The plate is fractured in the midportion. There is incomplete bony union of the left pubic ring fractures. There are moderate osteoarthritic changes within the left hip. IMPRESSION: 1. No acute fractures 2. Osteoarthritic changes involve the left hip, slightly progressive 3. Incomplete bony union involving the left superior and inferior pubic rami fractures. Fractured metallic plate. Electronically signed by: John Ocampo M.D. 03/07/2018 9:43 AM Dictated Date/Time: 03/07/2018 9:40 AM
--- NOTE | 2018-03-07 09:46 | DIAGNOSTIC IMAGING REPORT ---
L FOOT MIN 3 VIEWS ROUTINE CLINICAL HISTORY: Left foot pain COMPARISON: None. DISCUSSION: No acute fractures or dislocations are visualized. There are moderate arthritic changes at the level of the calcaneocuboid joint. There are mild degenerative changes at the talo navicular joint. There is joint space narrowing at the level of the first metatarsal phalangeal joint. IMPRESSION: 1. No acute fractures 2. Arthritic changes at the level of the first metatarsal phalangeal joint, calcaneocuboid joint, and talo navicular joint. Electronically signed by: John Ocampo M.D. 03/07/2018 9:44 AM Dictated Date/Time: 03/07/2018 9:43 AM
== END | disposition home or self-care (01) ==
LOC: C.RAD 09:07
PROVIDERS: ATTEND Nurse Practitioner Family
DX: S32.9XXA Fracture of unspecified parts of lumbosacral spine and pelvis, initial encounter for closed fracture (principal); X58.XXXA Exposure to other specified factors, initial encounter; M79.672 Pain in left foot

== ENCOUNTER 2020-08-03 09:43 | Inpatient (IN) ==
[2020-08-03] MEDS ORDERED: SODIUM CHLORIDE 0.9% 1000ML 1,000 ML IV SCH (10:00)
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
--- NOTE | 2020-08-03 10:12 | XRay Report ---
XR chest 1V portable CLINICAL HISTORY: Altered mental status. COMPARISON STUDY: Chest radiograph January 12, 2018. FINDINGS: Lung volumes are normal. Lungs are clear. There is no pneumothorax or pleural effusion. Car diac size is normal. Mediastinal contours are normal. There is no evidence for pulmonary edema. IMPRESSION: No acute cardiopulmonary findings. ACT 112: Negative or not required by law. Electronically signed by: Gurjit Camacho M.D. 08/03/2020 10:11 AM
[2020-08-03 10:19] LABS: Appearance Urine Cloudy (Clear); Bacteria Urine Automated Negative (Negative); Bilirubin Urine Negative (Negative); Blood Urine Negative (Negative); Cast Urine Automated 0 /lpf (0-5); Color Urine Yellow; Epithelial Cell Urine Auto 20-30 /lpf (0-5); Glucose Urine UA Negative (Negative); Ketones Urine Negative (Negative); Leukocyte Esterase Urine Negative (Negative); Nitrite Urine Negative (Negative); Protein Urine Negative (Negative); RBC Urine Automated 0-4 /hpf (0-4); Specific Gravity Urine 1.016 (1.000-1.030); Urobilinogen Urine Negative (Negative); pH Urine 7.5 (4.5-7.5)
[2020-08-03 10:29] LABS: Basophils # (auto) 0.03 K/uL (0-0.2); Basophils % (auto) 0.4 %; Eosinophils # (auto) 0.23 K/uL (0-0.5); Eosinophils % (auto) 3.1 %; Hematocrit (blood only) 34.7 % (37-47); Hemoglobin 11.5 g/dL (12.0-16.0); Immature Granulocytes # (auto) 0.01 K/uL (0.00-0.02); Immature Granulocytes % (auto) 0.1 %; Lymphocytes # (auto) 1.45 K/uL (1.2-3.4); Lymphocytes % (auto) 19.8 %; Mean Corpuscular Hemoglobin 30.9 pg (25-34); Mean Corpuscular Hgb Conc 33.1 g/dL (32-36); Mean Corpuscular Volume 93.3 fL (80-100); Mean Platelet Volume 10.9 fL (7.4-10.4); Monocytes # (auto) 0.81 K/uL (0.11-0.59); Monocytes % (auto) 11.1 %; Neutrophils # (auto) 4.79 K/uL (1.4-6.5); Neutrophils % (auto) 65.5 %; Platelet Count 229 K/uL (130-400); RDW Coefficient of Variation 13.8 % (11.5-14.5); RDW Standard Deviation 47.5 fL (36.4-46.3); Red Blood Count 3.72 M/uL (4.2-5.4); White Blood Count 7.32 K/uL (4.8-10.8)
[2020-08-03 10:33] LABS: iSTAT Hemoglobin 11.6 g/dl (12.0-16.0); iSTAT Ionized Calcium 1.23 mmol/l (1.12-1.32); iSTAT Potassium 3.5 mmol/L (3.3-5.0)
--- NOTE | 2020-08-03 10:45 | CT Scan Report ---
CT OF THE HEAD WITHOUT CONTRAST CLINICAL HISTORY: Altered mental status. COMPARISON STUDY: MRI of the brain February 20, 2015. Head CT March 06, 2015. CT DOSE: 537.48 mGy.cm TECHNIQUE: Helical axial images of the head were obtained without IV contrast. Automated exposure con trol was utilized for the study. A dose lowering technique was utilized adhering to the principles o f ALARA. FINDINGS: No acute intracranial hemorrhage, midline shift or mass effect is present. The ventricular system is unremarkable. The basilar cisterns are patent. No extra-axial collections are present. Ther e are no findings to suggest acute dural sinus thrombosis or acute territorial infarct. No significan t calvarial abnormalities are present. Visualized portions of the sinuses and mastoid air cells are c lear. IMPRESSION: No acute intracranial findings. ACT 112: Negative or not required by law. Electronically signed by: Gurjit Camacho M.D. 08/03/2020 10:43 AM
[2020-08-03 10:52] LABS: Amphetamines+Metham, Urine Pos (Neg); Barbiturates, Urine Neg (Neg); Benzodiazepine, Urine Neg (Neg); Cocaine, Urine Neg (Neg); MDMA (Ecstacy), Urine Pos (Neg); Methadone, Urine Neg (Neg); Opiate, Urine Neg (Neg); Phencyclidine, Urine Neg (Neg)
[2020-08-03 10:58] LABS: Albumin Level 3.3 gm/dl (3.4-5.0); BUN Creatinine Ratio 13.2 (10-20); Calcium 9.3 mg/dl (8.5-10.1); Creatinine Clr Calc Pharmacy 57.1 ml/min; Est GFR (African American) 75.3; Potassium 3.6 mmol/L (3.5-5.1)
[2020-08-03 11:06] LABS: Acetaminophen < 2 ug/ml (10-30)
[2020-08-03 11:16] LABS: Albumin Globulin Ratio 0.8 (0.9-2); Bilirubin,Total 0.5 mg/dl (0.2-1); Globulin 4.2 gm/dl (2.5-4.0); Thyroid Stimulating Hormone 2.45 uIu/ml (0.300-4.500); Total Protein 7.5 gm/dl (6.4-8.2)
--- NOTE | 2020-08-03 14:52 | Electrocardiogram Report ---
Test Reason : Blood Pressure : / mmHG Vent. Rate : 094 BPM Atrial Rate : 094 BPM P-R Int : 152 ms QRS Dur : 080 ms QT Int : 370 ms P-R-T Axes : 069 063 077 degrees QTc Int : 462 ms Normal sinus rhythm Normal ECG When compared with ECG of 12-JAN-2018 21:38, No significant change was found Confirmed by Ari Felix ([id number]) on 08/03/2020 2:52:05 PM Referred By: REFERRED SELF Confirmed By:Ari Felix
--- NOTE | 2020-08-03 15:47 | History & Physical Report ---
Date of Service August 03, 2020 Assessment & Plan (1) Acute drug overdose: Multidrug overdose suspected. GCS 8 - gag reflex present. ER discussed with poison control and recommended observation alone. Start LR @ 125 ml/hr (2) Acute alteration in mental status: Secondary to suspected multiple drug allergies as above (3) Depression: Holding all psychiatric medications at this time Consult psychiatry (4) Bipolar mood disorder: As above Admission and Anticipated Discharge Date Admission Date: 08/03/2020 History of Present Illness Chief Complaint: Unresponsiveness, Suspected drug overdose Primary Care Provider: Everett Pryor III, JAMEEL Socorro Glover is a 44 year old female who came in via EMS due to unresponsiveness. Unable to get any history from the patient therefore history taken from discussion with Dr. Martinez, EMS and EHR notes. Patient was found in a private residence and the car coupler of the residence found her in the closet unresponsive. State police found multiple unlabeled bottles of pills. When state police arrived she had a number of bottles of pills with her. One empty bottle of ambien. EMS brought her to the ER where she has been slowly waking up. Breathing on her own. No response to Narcan 0.5 mg. In the ER workup was relatively unremarkable except for urine tox positive for amphetamines, MDMA and marijuana. Allergies Allergy/AdvReac Type Severity Reaction Status Date / Time codeine Allergy Unknown PT IS NOT Verified 04/02/20 16:26 ALLERGIC TO CODEINE BUT TO COUGH SYRUP FORMULATION Home Medications Home Medications Medication Instructions Recorded Confirmed Type lorazepam [Ativan] 0.5 mg PO TID PRN 12/05/18 08/03/20 History zolpidem 5 mg tablet 10 mg PO HS PRN tab 08/04/19 08/03/20 History naproxen 500 mg tablet 500 mg PO Q12H PRN #180 tab 12/08/19 08/03/20 Rx gabapentin 800 mg tablet 800 mg PO TID #270 tab 01/12/20 08/03/20 Rx lidocaine 5 % topical ointment 1 appln TOP BID #50 gm 04/12/20 08/03/20 Rx ondansetron HCl 4 mg tablet 4 - 8 mg PO TID PRN 30 Days #30 tab 06/01/20 08/03/20 Rx sumatriptan succinate 100 mg tablet 100 mg PO .COMPLEX PRN 30 Days #9 06/01/20 08/03/20 Rx tab bupropion HCl 100 mg PO QAM 08/03/20 08/03/20 History quetiapine 400 mg PO HS 08/03/20 08/03/20 History Past Med/Surg History Medical History Anxiety Bipolar mood disorder Drug-induced encephalopathy Emphysema lung INHALER PRN Fibromyalgia GERD (gastroesophageal reflux disease) HX Hepatitis History of alcoholism IV drug abuse Migraine Pelvic ring fracture with nonunion Recurrent seizures Seizure OCCURED 5 YEARS AGO, SECONDARY TO AN INTERACTION WITH MEDICATIONS. MEDICATIONS WERE STOPPED AND NO ISSUES SINCE. Surgical History H/O foot surgery LEFT FOR FRACTURE History of appendectomy History of bilateral tubal ligation History of cholecystectomy History of esophagogastroduodenoscopy (EGD) WITH DILITATION History of pelvic surgery LEFT-HISTORY OF HARDWARE PLACED S/T TO FRACTURE, SECOND SURGERY PERFORMED AFTER PLATE BROKE AND CADAVER GRAFT WAS PLACED Family History Unknown Coronary heart disease Diabetes Hypertension Mother Gallbladder disease Sister Gallbladder disease Grandmother (Maternal) Breast cancer Denies family history of Ovarian cancer Prostate cancer Myocardial infarction Colorectal cancer Social History Smoking Status: Former smoker Cigarettes Per Day: HX OF 1/2 PPD, QUIT 2 MONTHS AGO; Smoking End Date: two months ago; Second Hand Exposure: No; Hx Substance Use: Yes Last Used Substance: Unknown Preferred Language: Pashto Communication Ability: Effective Visual Impairment: No Limitations Hearing Ability: Normal Coordinate Measuring Machine Operator Required: No Beliefs That Will Affect Care: None marital status: Legally Current Living Situation: Significant Other Current Living Situation Comment: WITH FRIEND current occupational status: employed Feels Safe at Home: Hesitant to Answer Dental Care, Regularly: Yes Physical Activity Frequency: Daily Seatbelt Use: always Sunscreen Use: Yes Assistive Devices: None Review of Systems Review of Systems: Unobtainable due to reduced consciousness Physical Exam Constitutional: well developed; + not well nourished and no acute distress Eyes: PERRL, conjunctivae normal, anicteric sclerae Neck: trachea midline; no tracheal deviation Respiratory: normal respiratory effort, lungs clear to auscultation Cardiovascular: RRR, no murmur, no edema Skin: Multiple areas of excoriation over bilateral legs and arms. Neurologic: + not awake (gag reflex present) Psychiatric: Orientation: alert (groans to voice, GCS 8); + not oriented x 3 Genitourinary: no CVA tenderness Results & Data Results & Data ([facility]) Vital Signs (Past 12 Hours) Vital Signs Temp Pulse Pulse Resp BP BP Pulse Ox 08/03/20 15:33 80 13 132/96 100 08/03/20 15:00 89 12 128/100 100 08/03/20 13:46 93 H 14 119/87 100 08/03/20 13:00 92 H 18 130/96 100 08/03/20 11:58 92 H 18 130/96 100 08/03/20 11:30 96 H 16 119/90 100 08/03/20 11:15 99 H 21 118/88 100 08/03/20 11:00 100 H 18 122/90 99 08/03/20 10:45 105 H 15 124/94 100 08/03/20 10:43 107 H 17 100 08/03/20 10:42 104 H 15 128/95 100 08/03/20 10:16 95 H 13 100 08/03/20 10:15 96 H 11 L 136/99 99 08/03/20 10:01 96 H 13 99 08/03/20 10:00 97 H 13 118/88 99 08/03/20 09:59 36.6 C 95 H 13 119/84 97 08/03/20 09:58 95 H 14 99 08/03/20 09:53 99 08/03/20 09:49 105 H 17 119/84 100 Diagnostic Findings XR chest 1V portable IMPRESSION: No acute cardiopulmonary findings. CT OF THE HEAD WITHOUT CONTRAST IMPRESSION: No acute intracranial findings. ECG Indication: altered mental status Rate (beats per minute): 94 Rhythm: normal sinus Comparison ECG Date: from (January 12, 2018) Change: no significant change Code Status & VTE Plan Code Status Full - unable to discuss with patient VTE Prophylaxis Plan VTE Prophylaxis will be ordered: No PG Care Time/CCT Total # of Minutes Spent Total Time Spent with Patient: Total time spent is greater than 50% in coordination of care (as documented) at patient's floor/unit and/or counseling patient: Coding Level of Care Code 11203 Initial Inpt Care Lvl 3 Diagnoses Acute drug overdose T50.904A Encounter type: initial encounter Injury intent: undetermined intent Acute alteration in mental status R41.82 Depression F32.9 Bipolar mood disorder F31.9 (1) Acute drug overdose Encounter type: initial encounter Injury intent: undetermined intent Qualified Code(s): T50.904A - Poisoning by unspecified drugs, medicaments and biological substances, undetermined, initial encounter
[2020-08-03] MEDS ORDERED: INFLUENZA ADMINISTRATION CHARGE ONE (19:00)
[2020-08-03] MEDS ORDERED: INFLUENZA VIRUS QUAD VACCINE 0.5 ML SYR IM ONE (19:00)
[2020-08-03] MEDS: LACTATED RINGER'S 1,000 ML IV SCH (19:22)
[2020-08-04] MEDS: LACTATED RINGER'S 1,000 ML IV SCH ×2 (05:27→15:22)
[2020-08-04 07:36] LABS: Basophils # (auto) 0.02 K/uL (0-0.2); Basophils % (auto) 0.3 %; Eosinophils # (auto) 0.23 K/uL (0-0.5); Eosinophils % (auto) 3.4 %; Hematocrit (blood only) 32.8 % (37-47); Hemoglobin 10.9 g/dL (12.0-16.0); Immature Granulocytes # (auto) 0.02 K/uL (0.00-0.02); Immature Granulocytes % (auto) 0.3 %; Lymphocytes # (auto) 1.49 K/uL (1.2-3.4); Lymphocytes % (auto) 21.7 %; Mean Corpuscular Hemoglobin 30.8 pg (25-34); Mean Corpuscular Hgb Conc 33.2 g/dL (32-36); Mean Corpuscular Volume 92.7 fL (80-100); Mean Platelet Volume 10.7 fL (7.4-10.4); Monocytes # (auto) 0.89 K/uL (0.11-0.59); Neutrophils # (auto) 4.21 K/uL (1.4-6.5); Neutrophils % (auto) 61.3 %; Platelet Count 203 K/uL (130-400); RDW Coefficient of Variation 13.9 % (11.5-14.5); RDW Standard Deviation 47.3 fL (36.4-46.3); Red Blood Count 3.54 M/uL (4.2-5.4); White Blood Count 6.86 K/uL (4.8-10.8)
[2020-08-04 08:09] LABS: Albumin Level 2.6 gm/dl (3.4-5.0); BUN Creatinine Ratio 11.4 (10-20); Calcium 8.9 mg/dl (8.5-10.1); Creatinine Clr Calc Pharmacy 68.2 ml/min; Est GFR (African American) 93.3; Est GFR (Non-African American) 80.5; Potassium 3.4 mmol/L (3.5-5.1)
[2020-08-04 08:12] LABS: Albumin Globulin Ratio 0.7 (0.9-2); Bilirubin,Total 0.5 mg/dl (0.2-1); Globulin 3.6 gm/dl (2.5-4.0); Total Protein 6.2 gm/dl (6.4-8.2)
--- NOTE | 2020-08-04 10:14 | Electrocardiogram Report ---
Test Reason : Blood Pressure : / mmHG Vent. Rate : 095 BPM Atrial Rate : 095 BPM P-R Int : 138 ms QRS Dur : 080 ms QT Int : 356 ms P-R-T Axes : 068 067 056 degrees QTc Int : 447 ms Normal sinus rhythm Normal ECG When compared with ECG of 03-AUG-2020 09:49, No significant change was found Confirmed by David Rojas ([id number]) on 08/04/2020 10:13:53 AM Referred By: REFERRED SELF Confirmed By:David Rojas
--- NOTE | 2020-08-04 10:18 | Electrocardiogram Report ---
Test Reason : Blood Pressure : / mmHG Vent. Rate : 088 BPM Atrial Rate : 088 BPM P-R Int : 134 ms QRS Dur : 082 ms QT Int : 360 ms P-R-T Axes : 066 060 079 degrees QTc Int : 435 ms Normal sinus rhythm Normal ECG When compared with ECG of 04-AUG-2020 06:27, (unconfirmed) No significant change was found Confirmed by David Rojas ([id number]) on 08/04/2020 10:17:51 AM Referred By: REFERRED SELF Confirmed By:David Rojas
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
[2020-08-04] MEDS ORDERED: LORazepam 0.5 MG TAB PO STA (16:09)
[2020-08-04] MEDS ORDERED: ACETAMINOPHEN 325 MG TAB PO PRN (16:09)
[2020-08-04] MEDS ORDERED: LORazepam 0.5 MG TAB PO PRN (16:09)
[2020-08-04] MEDS ORDERED: SUMAtriptan succinate 100 MG TAB PO ONE (16:09)
[2020-08-04] MEDS ORDERED: ACETAMINOPHEN 500 MG TAB PO ONE (16:10)
--- NOTE | 2020-08-04 16:34 | Hospitalist Progress Note ---
Date of Service August 04, 2020 Assessment & Plan (1) Acute drug overdose: polysubstance, unclear what - but does seem to be recovering well (now more than anything appearing withdrawal like - although in a nonspecific way) - awake and mentating, QT OK, vitals good -does not appear to have been intentional OD/suicide attempt. continue to follow closely, however. 1:1 at nursing discretion, serial exams, but does not appear actively suicidal (2) Headache: is c/w migraine, takes imitrex at home - will order x1 (3) Thigh pain: described it as lower abdominal pain - but on exam really seems to be prox imal quad. certainly being found in a closet with no idea how she got there, a quad strain/injury would not at all be surprising. nothing examining concerning for abdominal pathology or hernias, likewise does not examine as bony hip or pelvic pathology (does have chronic pelvic pain and operative pelvic changes and hip DJD) -- treat as proximal quad strain for now (tylenol/motrin/voltaren gel) but also serial exams to ensure no new pathology would be subtly present (doubt, but will want to follow) (4) Pelvic pain: chronic - but if truly takes gabapentin 800mg TID would not want to abruptly stop. given OD yesterday and unclear how often she definitely takes her gabapentin - for now will blunt any withdrawal with gabapentin 600mg bid. follow (5) Bipolar mood disorder: notes taking ativan 0.5mg tid scheduled for a long time; review of PDMP corroborates that this has been Rx'd routinely by her regular psychiatrist. much as above, don't want her to have withdrawal but on the tail end of OD not sure that going with her full dosing would be appropriate either - 0.5mg now then bid prn for now (6) DVT prophylaxis: ambulation (7) Discharge planning issues: maintain in hospital for now. serial mental status exams, serial physical exams. if ongoing improvement/stability and no other deterioration psychiatrically - then possibly stable for discharge by tomorrow Admission and Anticipated Discharge Date Admission Date: August 03, 2020 Subjective feeling terrible. headache - "i get migraines" - notes frontal and photophobia - usually takes 100mg imitrex lower abdominal pain or upper leg pain - hurts more when leg flexed at hip and towards abdomen - pretty constant and intense. has solorzano in and has been having BMs feels a little generally bad - notes that she nromally takes 800mg gabapentin TID scheduled (for pain control from old pelvic fractures) and ntoes that she's taken ativan 0.5mg tid scheduled for years does not remember much of anything from yesterday - vaguely remembers people being upset about something but really no concrete details. isn't really aware of where she was or how she got there. can't remember much at all, and the little she can is quite blurry. however, concretely states that she had absolutely no SI / no intentional OD. does note that she's upset with herself because of using meth - probably 3-4 times a week for the last 5 months. not daily. would like cath out. thinks she probably doesn't need IV fluids anymore Review of Systems Review of Systems: All systems reviewed & are unremarkable except as noted in HPI & below Physical Exam Physical Exam: gen [id number] pleasant but fatigued and uncomfortable appearing. heent nc at mmm breathing unlabored no accessory muslces good effort skin no rashes no pallor or icterus. neuro cn 2-12 grossly intact gross motor/sensory intact no focal deficits msk/ost no suboccipital tenderness does have (+) proximal quad tenderness worse w palp at just distal to ASIS and down top of quad about ~1/4 of the distance - less tender more distally. painful to move leg mostly at hip flexion - no pain on internal rotation. abd soft nd nt no masses or organomegaly no guarding no rebound. abdominal palp does not cause thigh pain. no hernias felt, no inguinal masses Results & Data Results & Data ([facility]) Vital Signs (Past 12 Hours) Vital Signs Temp Pulse Pulse Resp BP Pulse Ox 08/04/20 15:15 98.1 F 87 19 124/84 99 08/04/20 15:10 115 H 08/04/20 11:53 97.2 F L 89 16 119/82 99 08/04/20 07:32 98.1 F 90 20 122/81 99 PG Care Time/CCT Total # of Minutes Spent Total Time Spent with Patient: Total time spent is greater than 50% in coordination of care (as documented) at patient's floor/unit and/or counseling patient: Coding Level of Care Code 25886 Subseq Hosp Care Lvl 3 Diagnoses Acute drug overdose T50.904A Encounter type: initial encounter Injury intent: undetermined intent Headache R51.9 Thigh pain M79.659 Pelvic pain R10.2 Bipolar mood disorder F31.9 DVT prophylaxis Z29.9 Discharge planning issues Z02.9 (1) Acute drug overdose Encounter type: initial encounter Injury intent: undetermined intent Qualified Code(s): T50.904A - Poisoning by unspecified drugs, medicaments and biological substances, undetermined, initial encounter
[2020-08-04] MEDS: DICLOFENAC SOD 1% GEL 100 GM TUBE EXT SCH ×2 (17:49→20:03)
[2020-08-04] MEDS: GABAPENTIN 600 MG TAB PO SCH (20:02)
[2020-08-04] MEDS ORDERED: QUEtiapine FUMARATE 200 MG TAB PO SCH (21:00)
[2020-08-05] MEDS: IBUPROFEN 200 MG TAB PO PRN ×2 (03:51→12:25)
[2020-08-05] MEDS: GABAPENTIN 600 MG TAB PO SCH (07:25)
[2020-08-05] MEDS: DICLOFENAC SOD 1% GEL 100 GM TUBE EXT SCH (07:26)
--- NOTE | 2020-08-05 11:59 | Psychiatric Progress Note ---
Date of Service August 05, 2020 Impression / Recommendations Impression 44 yo female with an extensive substance abuse hx presented following unknown ingestion, MSE improved significantly from yesterday and consistently denies SI. There is no evidence of major mood disorder or psychosis as the cause of AMS. Consistent with substance misuse of prescription pills on top of ongoing meth. Plan: abstain from drugs/ETOH, she has long hx of declining rehab and other D&A services which are most appropriate disposition. There is no indication for inpatient psychiatric hospitalization and she can be discharged to the police. Resume home dose of Wellbutrin and Seroquel, do not supply Ativan at discharge. Risk Factors Assessment Do You Have Access To A Gun?: No Interval History Chief Complaint "I'm feeling much better today". Review of Systems Notes denied pain or discomfort at this time, no psychosis or alejandro. Subjective Subjective Patient was seen & assessed and interval progress reviewed with liaison, interim history reviewed, patient was taken off of 1 on 1 and continued to deny SI as MSE clears. She continues to report no recollection of how she went from [place] to [place], would like to piece together with friends but no cell phone is among her belongings. She is adamant that Wellbutrin is helpful and would like to resume it and previous dose. Denies manic symptoms prior to this event. States using meth 4-5 days/week. Denies SI or vegetative symptoms of depression. She was cooperative with signing releases for Dr. Rodriguez's office and has an appointment later this month. She also gave permission for liaison to talk with her emergency contact re: recent baseline. Physical Exam Psychiatric Orientation: alert Apperance: appropriately groomed Eye Contact: + fair eye contact Motor Behavior: no abnormal motor movements Speech: normal rate/rhythm/volume of speech Affect: euthymic affect Mood: + anxious mood Thought Process: + concrete thought process Thought Content: reality based without delusions Suicidal Thoughts: denies suicidal thoughts Homicidal Thoughts: denies homicidal thoughts Hallucinations: no auditory hallucinations and no visual hallucinations Cognition: attention grossly intact and language grossly intact Estimated Intelligence: consistent with education level Insight: + limited insight Judgement: + limited judgement Vital Signs (Past 24 Hours) Last Vital Signs Temp 36.6 C 08/05/20 11:04 Pulse 91 H 08/05/20 11:04 Resp 16 08/05/20 11:04 BP 127/85 08/05/20 11:04 Pulse Ox 99 08/05/20 11:04 Results & Data (U) Current Inpatient Medications Current Inpatient Medications: Current Inpatient Medications Acetaminophen (Acetaminophen 325 Mg Tab) 650 mg PO Q4H PRN PRN Reason: Pain Stop: 09/03/20 16:08 Last Admin: 08/05/20 07:46 Dose: 650 mg Documented by: Diclofenac Sodium (Diclofenac Sod 1% Gel 100 Gm Tube) 2 gm EXT QID MISHA Stop: 09/03/20 16:59 Last Admin: 08/05/20 07:26 Dose: 2 gm Documented by: Gabapentin (Gabapentin 600 Mg Tab) 600 mg PO BID MISHA Stop: 09/03/20 20:59 Last Admin: 08/05/20 07:25 Dose: 600 mg Documented by: Ibuprofen (Ibuprofen 200 Mg Tab) 400 mg PO TID PRN PRN Reason: Moderate Pain Stop: 09/03/20 16:08 Last Admin: 08/05/20 03:51 Dose: 400 mg Documented by: Lorazepam (Lorazepam 0.5 Mg Tab) 0.5 mg PO BID PRN PRN Reason: withdrawal Stop: 09/03/20 16:08 Last Admin: 08/05/20 10:20 Dose: 0.5 mg Documented by: Quetiapine Fumarate (Quetiapine Fumarate 200 Mg Tab) 200 mg PO HS MISHA Stop: 09/03/20 20:59 Last Admin: 08/04/20 20:02 Dose: 200 mg Documented by: Mental Health & Subst Abuse Tx Psychiatrist Name of Psychiatrist: Dr. Rodriguez @ [facility] Psychiatrist's
[2020-08-05] MEDS ORDERED: buPROPion SR 100 MG TABCR PO SCH (12:00)
--- NOTE | 2020-08-05 17:41 | Discharge Summary ---
Date of Service August 05, 2020 Admission HPI Per Admitting Provider Socorro Glover is a 44 year old female who came in via EMS due to unresponsiveness. Unable to get any history from the patient therefore history taken from discussion with Dr. Maritnez, EMS and EHR notes. Patient was found in a private residence and the insurance agency owner of the residence found her in the closet unresponsive. State police found multiple unlabeled bottles of pills. When state police arrived she had a number of bottles of pills with her. One empty bottle of ambien. EMS brought her to the ER where she has been slowly waking up. Breathing on her own. No response to Narcan 0.5 mg. In the ER workup was relatively unremarkable except for urine tox positive for amphetamines, MDMA and marijuana. Principal Diagnosis polysubstance overdose proximal quad strain Discharge Exam gen aaox3 pleasant fatigued but nad. heent nc at mmm breathing unlabored no accessory muscles good effort skin no rashes no pallor or icterus neuro no focal deficits abd soft nd nt no masses no organomegaly, L distal abd/prox thigh no hernias. ongoing tenderness proximal quad. no stepoff or divot, no muscle weakness no crepitis Discharge Data Allergies Allergy/AdvReac Type Severity Reaction Status Date / Time codeine Allergy Unknown PT IS NOT Verified 04/02/20 16:26 ALLERGIC TO CODEINE BUT TO COUGH SYRUP FORMULATION Consultations 08/03/20 15:18 ED Decision to Admit Stat 08/03/20 18:34 Consult Behavioral Health Liaison Routine 08/03/20 19:03 Consult Psychiatry Routine Ordered Studies 08/03/20 09:53 CT head/brain wo con Stat Hospital Course (1) Acute drug overdose: polysubstance, unclear what - but does seem to be recovering well (now more than anything appearing withdrawal like - although in a nonspecific way) - awake and mentating, QT OK, vitals good -does not appear to have been intentional OD/suicide attempt. no SI on further review, OK to be discharged per psych as well. had to be discharged into police custody. (2) Headache: resolved. (3) Thigh pain: described it as lower abdominal pain - but on exam really seems to be proximal quad. certainly being found in a closet with no idea how she got there, a quad strain/injury would not at all be surprising. nothing examining concerning for abdominal pathology or hernias, likewise does not examine as bony hip or pelvic pathology (does have chronic pelvic pain and operative pelvic changes and hip DJD) -- treating as proximal quad strain for now (tylenol/motrin/voltaren gel) and improving as such - discussed that if she doesn't feel significant improvement over the next week then should have re- eval. (4) Pelvic pain: chronic -baseline regimen of gabapentin noted (5) Bipolar mood disorder: notes taking ativan 0.5mg tid scheduled for a long time; review of PDMP corroborates that this has been Rx'd routinely by her regular psychiatrist. outpt f/u. (6) DVT prophylaxis: ambulation (7) Discharge planning issues: stable for discharge. Total Time Total Time Spent Total Time Spent (In Minutes): <30 Discharge Plan Discharge Items Patient Disposition: Home - Self-Care Reason For Visit: DRUG OVERDOSE Discharge Diagnosis: overdose resolved, hip pain (see below) Activity: Resume your previous activity Non-emergency contact: Primary Care Provider and Psychiatrist Call non-emergency contact if: you have any medication questions and your symptoms worsen Follow-up/Referrals: Everett Pryor III, CRNP [Primary Care Provider] - Diet: Regular Addtl Attending Provider Instructions: overdose - fortunately while it was not clear what all you might have taken, you came through the overdose OK, without any clear evidence of fpc neurologic/cardiac issues. obviously it's really critical to do what you can to seek help for your struggles - sometimes folks aren't quite as tammi when it comes to events like this. we really want you to take care of yourself, and getting more help will hopefully be a good first step. further, it would be worth talking to your psychiatrist about possibly trying to reduce the ativan (lorazepam) -- those meds are at times fairly sedating, and can interact synergistically (2+2=5 kind of stuff) with other sedating meds. while we don't want to stop them abruptly and risk putting you through withdrawal, it would be well worth discussing about possibly trying to shift over to a different regimen over time. hip pain -you examine very much like you have a pretty painful strain of the top part of your quadriceps muscle. the quadriceps (quad) is the main muscle group on the front of your thigh - and it attaches from the corner of your pelvis (a bone called the ASIS) and then runs down below your knee. it's quite probable that you strained it when you were "out of it" - but fortunately nothing examines torn/broken/etc. for now - do gentle range of motion (basically just moving it without a whole lot of pressure or resistance) and use the voltaren (diclofenac) gel on it 4 times a day. with that plan, give it about a week - by next week (around 08/12) if it's not feeling noticeably better, then i would want it looked at again to make sure nothing has changed or evolved. it's certainly possible it won't be "good as new" by next week at this time, but if it's not been showing any progress, then we'd want you getting checked out. take care of yourself!! Pending Studies at Discharge: No Stand-Alone Forms: My [facility], Smoking Cessation Medications and DC Order Prescriptions: New diclofenac sodium [Voltaren] 1 % gel 2 g topical QID Qty: 100 RF: 0 Continued naproxen 500 mg tablet 500 mg PO Q12H PRN (Reason: Pain) Qty: 180 RF: 1 gabapentin [Neurontin] 800 mg tablet 800 mg PO TID Qty: 270 RF: 1 lidocaine 5 % ointment 1 appln TOP BID Qty: 50 RF: 5 ondansetron HCl [Zofran] 4 mg tablet 4 - 8 mg PO TID PRN (Reason: Nausea) 30 Days Qty: 30 RF: 0 sumatriptan succinate [Imitrex] 100 mg tablet 100 mg PO .COMPLEX PRN (Reason: Migraine Headache) 30 Days Qty: 9 RF: 5 zolpidem [Ambien] 5 mg tablet 10 mg PO HS PRN (Reason: insomnia) RF: 0 bupropion HCl 100 mg tablet sustained-release 12 hr 100 mg PO QAM RF: 0 quetiapine 400 mg tablet 400 mg PO HS RF: 0 lorazepam [Ativan] 0.5 mg tablet 0.5 mg PO TID PRN (Reason: .) RF: 0 Discharge Orders: Discharge Order (Routine); Ordered 08/05/20 Ordered By: Dylan Mcgrath/Other Patient Handouts: Self-Care for Headaches Admission Data Admit Date/Time: 08/03/20 15:50 Attending Provider: Dylan Heard Admit Provider: Glen Fowler Primary Care Provider: Everett Pryor III Other Providers: Glen Fowler ; Alyx Alvarez Other Interventions: Discharge Summary Assessment (RN) Last Done: 08/05/20 13:28 Coding Level of Care Code D/C Day Management <30 mins Diagnoses Acute drug overdose T50.904A Encounter type: initial encounter Injury intent: undetermined intent Headache R51.9 Thigh pain M79.659 Pelvic pain R10.2 Bipolar mood disorder F31.9 DVT prophylaxis Z29.9 Discharge planning issues Z02.9
[2020-08-05] MEDS ORDERED: QUEtiapine FUMARATE 200 MG TAB PO SCH (21:00)
[2020-08-06 10:12] LABS: Amphetamine Urine, Confirm 1850 ng/mL (<250); MDA negative; MDEA negative; MDMA (Ecstasy) Urine, Confirm negative; Marijuana Quant, GCMS Urine 54 ng/mL (<5); Methamphetamine, Ur Confirm >15000 ng/mL (<250)
== END 2020-08-05 13:38 | disposition home or self-care (01) | DRG 918 ==
LOC: ED 09:43 → SUATTDRO 15:50 → 2S 15:50